=== PATIENT | male | born 1985 | race Caucasian/White ===

== ENCOUNTER 2017-09-21 07:47 | Outpatient (CLI) | payer OTHER ==
--- NOTE | 2017-09-21 09:54 | ULT ---
ABDOMINAL ULTRASOUND: Date: 09/21/17 PROVIDED CLINICAL HISTORY: Elevated LFTs. FINDINGS: Visualized abdominal aorta, IVC, and pancreas appear normal. The liver demonstrates no evidence for i ntrahepatic biliary ductal dilatation. The common duct is not dilated. Circumscribed echogenic lesion s are seen within the liver, one involving the right hepatic lobe and one involving the left hepatic lobe. Statistically, these reflect hemangiomata but are incompletely characterized sonographically. Gallbladder demonstrates no stones, wall thickening, or pericholecystic fluid. Kidneys demonstrate no hydronephrosis or mass. Spleen is not enlarged and demonstrates no focal abnormality. IMPRESSION: Echogenic hepatic lesions as described above, statistically reflecting hemangiomata, but incompletely characterized sonographically. These could be further characterized via abdominal MRI if clinically indicated. POS: JOEY
== END 2017-09-21 07:48 | disposition home or self-care (01) ==
LOC: NAV ULT 07:47
PROVIDERS: ATTEND Nurse Practitioner Family
DX: M62.82 Rhabdomyolysis (principal); R74.8 Abnormal levels of other serum enzymes; D64.9 Anemia, unspecified; R17 Unspecified jaundice; K76.9 Liver disease, unspecified
CPT/HCPCS: 76700